=== PATIENT | female | born 1960 | race Caucasian/White ===

== ENCOUNTER 2019-03-24 21:04 | Emergency (ER) | payer BC, MEDICARE ==
[2019-03-24] MEDS ORDERED: OLANZapine ODT 5 MG TABLET TL ONE (21:30)
[2019-03-24 22:04] LABS: BASOPHILS % (AUTO) 0.5 %; EOSINOPHILS # (AUTO) 0.1 10^3/uL (0.0-0.7); HGB - HEMOGLOBIN 13.2 g/dL (12.0-16.0); LYMPHOCYTES # (AUTO) 2.7 10^3/uL (1.5-3.5); LYMPHOCYTES % (AUTO) 44.2 %; MEAN CORPUSCULAR HEMOGLOBIN 32.2 pg (27.0-31.0); MEAN CORPUSCULAR HGB CONC 34.9 g/dL (32.0-36.0); MEAN CORPUSCULAR VOLUME 92.2 fL (81.0-99.0); MEAN PLATELET VOLUME 8.8 fL (7.9-10.8); MONOCYTES # (AUTO) 0.4 10^3/uL (0.0-1.0); MONOCYTES % (AUTO) 6.2 %; NEUTROPHILS # (AUTO) 2.8 10^3/uL (1.5-6.6); NEUTROPHILS % (AUTO) 46.9 %; PLT - PLATELET COUNT 208 10^3/uL (130-450); RED CELL DISTRIBUTION WIDTH 11.6 % (12.0-15.0)
[2019-03-24 22:16] LABS: ALBUMIN 4.9 g/dL (3.2-5.5); ALBUMIN/GLOBULIN RATIO 1.8 (1.0-2.2); ALKALINE PHOSPHATASE 61 IU/L (42-121); ALT ALANINE AMINOTRANSFERASE 22 IU/L (10-60); AST ASPARTATE AMINOTRANSFERASE 21 IU/L (10-42); BUN - BLOOD UREA NITROGEN 22 mg/dL (6-20); CALCIUM 9.9 mg/dL (8.5-10.3); CARBON DIOXIDE - CO2 31 mmol/L (21-32); CHLORIDE 100 mmol/L (101-111); GFR - MDRD 57 (>89); GLUCOSE 127 mg/dL (70-100); LIPASE 31 U/L (22-51); SODIUM 142 mmol/L (135-145); TOTAL PROTEIN 7.6 g/dL (6.7-8.2)
[2019-03-24 22:28] LABS: MUDS CUTOFF CONCENTRATIONS CUTOFF CONC BELOW:
[2019-03-24 22:31] LABS: BILIRUBIN,URINE NEGATIVE (NEGATIVE); GLUCOSE, URINE (UA) NEGATIVE (NEGATIVE); KETONES,URINE (UA) NEGATIVE (NEGATIVE); LEUKOCYTE ESTERASE, URINE LARGE (NEGATIVE); NITRITE,URINE NEGATIVE (NEGATIVE); OCCULT BLOOD,URINE TRACE-INTA (NEGATIVE); PROTEIN,URINE NEGATIVE (NEGATIVE); UROBILINOGEN,URINE 0.2 (NORMAL) E.U./dL (NORMAL)
[2019-03-24 22:32] LABS: CLARITY,URINE HAZY (CLEAR)
[2019-03-24 22:45] LABS: BACTERIA,URINE Few /HPF (None Seen); RBC,URINE 0-5 /HPF (0-5); SQUAMOUS EPITHELIAL CELL,UR MANY Squamous (<= Few)
[2019-03-24 22:54] LABS: AMPHETAMINE SCREEN,URINE NEGATIVE (NEGATIVE); BENZODIAZEPINES SCREEN, URINE NEGATIVE (NEGATIVE); COCAINE SCREEN URINE NEGATIVE (NEGATIVE); METHADONE SCREEN, URINE NEGATIVE (NEGATIVE); METHAMPHETAMINES SCREEN, URINE NEGATIVE (NEGATIVE); OPIATE SCREEN, URINE NEGATIVE (NEGATIVE); OXYCODONE SCREEN, URINE NEGATIVE (NEGATIVE); PROPOXYPHENE SCREEN, URINE NEGATIVE (NEGATIVE); TRICYCLIC ANTIDEPRESSANT,URINE NEGATIVE (NEGATIVE)
--- NOTE | 2019-03-24 22:59 | ED Physician Documentation ---
History of Present Illness - Stated complaint Stated Complaint: MHE - Chief complaint Chief Complaint: MHE - Additonal information Additional information: This is a 58-year-old female with dementia, short-term memory loss, who presents after an outburst of agitation. Patient accompanied by her daughters. They provide history at over last year she has had a steady decline in her mental capabilities. She will not recognize her daughters, she is disoriented, and she at times will have outbursts of agitation. She is Established with a team of medical educator for this, she has had work-up including brain scans which reportedly show some "scar tissue" in her brain, she has been diagnosed with dementia. This evening her daughters were taking her out and she began screaming while in the car and tried unbuckle her seatbelt and leave the car. She has had episodes of agitation before before but not with her daughters (her is her primary intensive care unit nurse), and given how agitated she was they brought her here for evaluation. Now she is more calm, but her daughter state that she still appears slightly more agitated. No fever, cough. Review of Systems Nose: denies: Rhinorrhea / runny nose Cardiac: denies: Chest pain / pressure GI: denies: Abdominal Pain Skin: denies: Rash Neurologic: reports: Other (Dementia) Psychiatric: reports: Anxiety PD PAST MEDICAL HISTORY - Past Medical History Past Medical History: Yes Cardiovascular: None Respiratory: None Neuro: Dementia, Other Endocrine/Autoimmune: None GI: None VISITOR SERVICES INFORMATION ASSISTANT: None : None HEENT: None Psych: Depression, Anxiety, Post traumatic stress disorder Musculoskeletal: None Derm: None Other Past Medical History: SHORT TERM MEMORY LOSS...ARDS... - Past Surgical History Past Surgical History: Yes /VISITOR SERVICES INFORMATION ASSISTANT: Hysterectomy - Present Medications Home Medications: Ambulatory Orders Medication Instructions Recorded Confirmed Benztropine [Cogentin] 1 mg PO DAILY 03/24/19 03/24/19 Candesartan Cilexetil 4 mg PO DAILY 03/24/19 03/24/19 Cephalexin [Keflex] 500 mg PO Q6H #20 capsule 03/24/19 Gabapentin 400 mg PO DAILY 03/24/19 03/24/19 Metoprolol Tartrate 25 mg PO DAILY 03/24/19 03/24/19 OLANZapine [Olanzapine] 10 mg PO DAILY 03/24/19 03/24/19 Omeprazole 20 mg PO DAILY 03/24/19 03/24/19 Simvastatin 40 mg PO DAILY 03/24/19 03/24/19 hydroCHLOROthiazide 25 mg PO DAILY 03/24/19 03/24/19 [Hydrochlorothiazide] - Allergies Allergies/Adverse Reactions: Allergies Allergy/AdvReac Type Severity Reaction Status Date / Time bupropion AdvReac Unknown Verified 03/24/19 22:20 codeine AdvReac Nausea Verified 03/24/19 22:19 lisinopril AdvReac Unknown Verified 03/24/19 22:20 ondansetron AdvReac Itching Verified 03/24/19 22:20 trazodone AdvReac Unknown Verified 03/24/19 22:19 - Social History Does the pt smoke?: No Smoking Status: Never smoker Does the pt drink ETOH?: No Does the pt have substance abuse?: No - Immunizations Immunizations are current?: No - POLST Patient has POLST: No PD ED PE NORMAL - Vitals Vital signs reviewed: Yes - General General: Other (Alert, disoriented, at baseline per daughters) - HEENT HEENT: Atraumatic, PERRL - Neck Neck: Supple, no meningeal sign - Cardiac Cardiac: RRR - Respiratory Respiratory: No respiratory distress, Clear bilaterally - Abdomen Abdomen: Soft, Non tender, Non distended - Derm Derm: Warm and dry - Extremities Extremities: No deformity - Neuro Neuro: dealer accounts 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 Unable to answer complex questions. Requires frequent redirection, as she tries to leave the room and wants to go home. ) Results - Vitals Vitals: Vital Signs - 24 hr 03/24/19 03/24/19 03/24/19 21:21 21:50 22:57 Temperature 36.8 C Heart Rate 91 Respiratory 17 17 16 Rate Blood Pressure 121/104 H O2 Saturation 98 03/24/19 03/24/19 23:09 23:15 Temperature 36.3 C L Heart Rate 92 Respiratory 16 16 Rate Blood Pressure 110/71 O2 Saturation 98 Oxygen O2 Source Room air - Labs Labs: Laboratory Tests 03/24/19 03/24/19 03/24/19 21:59 21:59 21:59 WBC 6.0 RBC 4.10 L Hgb 13.2 Hct 37.8 MCV 92.2 MCH 32.2 H MCHC 34.9 RDW 11.6 L Plt Count 208 MPV 8.8 Neut # (Auto) 2.8 Lymph # (Auto) 2.7 Luna # (Auto) 0.4 Eos # (Auto) 0.1 Baso # (Auto) 0.0 Absolute Nucleated RBC 0.00 Nucleated RBC % 0.0 Sodium 142 Potassium 3.0 L Chloride 100 L Carbon Dioxide 31 Anion Gap 11.0 BUN 22 H Creatinine 1.0 Estimated GFR (MDRD) 57 L Glucose 127 H Calcium 9.9 Total Bilirubin 1.0 AST 21 ALT 22 Alkaline Phosphatase 61 Total Protein 7.6 Albumin 4.9 Globulin 2.7 Albumin/Globulin Ratio 1.8 Lipase 31 TSH 3.85 Urine Color Urine Clarity Urine pH Ur Specific [place] Urine Protein Urine Glucose (UA) Urine Ketones Urine Occult Blood Urine Nitrite Urine Bilirubin Urine Urobilinogen Ur Leukocyte Esterase Urine RBC Urine WBC Ur Squamous Epith Cells Urine Bacteria Ur Microscopic Review Urine Culture Comments Urine Opiates Screen Ur Oxycodone Screen Urine Methadone Screen Ur Propoxyphene Screen Ur Barbiturates Screen Ur Tricyclics Screen Ur Phencyclidine Scrn Ur Amphetamine Screen U Methamphetamines Scrn U Benzodiazepines Scrn Urine Cocaine Screen U Cannabinoids Screen Ethyl Alcohol < 5.0 03/24/19 22:25 WBC RBC Hgb Hct MCV MCH MCHC RDW Plt Count MPV Neut # (Auto) Lymph # (Auto) Luna # (Auto) Eos # (Auto) Baso # (Auto) Absolute Nucleated RBC Nucleated RBC % Sodium Potassium Chloride Carbon Dioxide Anion Gap BUN Creatinine Estimated GFR (MDRD) Glucose Calcium Total Bilirubin AST ALT Alkaline Phosphatase Total Protein Albumin Globulin Albumin/Globulin Ratio Lipase TSH Urine Color YELLOW Urine Clarity HAZY Urine pH 6.0 Ur Specific [place] 1.015 Urine Protein NEGATIVE Urine Glucose (UA) NEGATIVE Urine Ketones NEGATIVE Urine Occult Blood TRACE-INTA Urine Nitrite NEGATIVE Urine Bilirubin NEGATIVE Urine Urobilinogen 0.2 (NORMAL) Ur Leukocyte Esterase LARGE H Urine RBC 0-5 Urine WBC 11-25 H Ur Squamous Epith Cells MANY Squamous H Urine Bacteria Few Ur Microscopic Review INDICATED Urine Culture Comments NOT INDICATED Urine Opiates Screen NEGATIVE Ur Oxycodone Screen NEGATIVE Urine Methadone Screen NEGATIVE Ur Propoxyphene Screen NEGATIVE Ur Barbiturates Screen NEGATIVE Ur Tricyclics Screen NEGATIVE Ur Phencyclidine Scrn NEGATIVE Ur Amphetamine Screen NEGATIVE U Methamphetamines Scrn NEGATIVE U Benzodiazepines Scrn NEGATIVE Urine Cocaine Screen NEGATIVE U Cannabinoids Screen NEGATIVE Ethyl Alcohol PD MEDICAL DECISION MAKING - ED course Complexity details: considered differential (UTI, electrolyte abnormality, medication side effect, dementia) ED course: Pt has an advanced and unspecified dementia, she was brought here for an episode of agitation which according to history is not a rare occurence for her. She has had recent advanced imaging and given she is now back to near her baseline and has no history of trauma, I do not feel there is an indication to repeat imaging tonight. Labs are unremarkable other than mild hypokalemia and UA, which is contaminated but suggests UTI. On repeat exam patient is no longer agitated. I discussed our results and the likely UTI diagnosis. Antibiotics were prescribed with the first dose given here. Pt's daughters feel comfortable taking her home. Strict return precautions reviewed and patient was discharged in care of family. Departure - Departure Disposition: 01 Home, Self Care Clinical Impression: Agitation, UTI (urinary tract infection) Condition: Stable Instructions: ED UTI Cystitis Female Prescriptions: Cephalexin [Keflex] 500 mg PO Q6H #20 capsule Comments: Senia was seen today for some agitation. Her labs show a mildly low potassium, this is probably unrelated to her symptoms today. If she eats potassium rich foods such as bananas or avocados this should improve without medications. Our labs also showed a likely urinary tract infection. Please take the antibiotic prescribed. If she is developing fever, abdominal pain, vomiting, or any other concerning symptoms, please bring her back to the emergency department. Please also follow-up with her neurologist and primary care team on her agitation and behavior changes. Discharge Date/Time: 03/24/19 23:16
[2019-03-24] MEDS ORDERED: cephALEXin 250 MG CAPSULE PO STA (23:06)
[2019-03-24 23:10] VITALS: BP 110/71
== END 2019-03-24 23:16 | disposition home or self-care (01) ==
LOC: ED 21:04
DX: F03.90 Unspecified dementia, unspecified severity, without behavioral disturbance, psychotic disturbance, mood disturbance, and anxiety (principal); R45.1 Restlessness and agitation; F41.9 Anxiety disorder, unspecified; N39.0 Urinary tract infection, site not specified; E87.6 Hypokalemia
CPT/HCPCS: 36415; 80320; 81001; 83690; 99283; A9270; 80053; 80306; 81003; 84443; 85025; 87086